=== PATIENT | female | born 1960 | race African-American/Black ===

== ENCOUNTER 2017-09-01 12:01 | Emergency (ER) | payer MEDICAID ==
[~2017-09-01] VITALS: Ht 162.6 cm; Wt 64.0 kg
[2017-09-01] MEDS ORDERED: MORPHINE SULFATE 10 MG/ML CPJ IV ONE (12:45)
[2017-09-01] MEDS ORDERED: SODIUM CHLORIDE 0.9% 1,000 ML IV ONE (12:45)
[2017-09-01] MEDS ORDERED: ONDANSETRON HCL 4MG/2ML VIAL IV ONE (12:45)
[2017-09-01 12:55] LABS: HEMATOCRIT. 47.4 % (36.0-48.0); HEMOGLOBIN. 16.3 g/dL (12.0-16.0); MEAN CORPUSCULAR HEMOGLOBIN 30.2 pg (28.0-32.0); MEAN CORPUSCULAR VOLUME 88.1 fL (81.0-99.0); MEAN PLATELET VOLUME 8.7 fl (7.4-10.4); PLATELET 318 x1000/uL (130-400); RED BLOOD CELL COUNT 5.38 mill/uL (4.2-5.4); RED CELL DISTRIBUTION WIDTH 13.8 % (11.6-14.6)
[2017-09-01 13:02] LABS: INR 1.2; PROTHROMBIN TIME 12.5 sec (9.4-11.6)
[2017-09-01 13:10] LABS: CHLORIDE 97 mEq/L (98-107)
[2017-09-01] MEDS ORDERED: LISINOPRIL 20MG TABLET PO ONE (13:15)
[2017-09-01] MEDS ORDERED: HYDROCHLOROTHIAZIDE 25MG TABLET PO ONE (13:15)
[2017-09-01] MEDS ORDERED: AMLODIPINE 10MG TABLET PO ONE (13:15)
[2017-09-01 13:35] LABS: PLATELET ESTIMATE NORMAL
[2017-09-01] MEDS ORDERED: LABETALOL 5MG/ML SYR 20 MG/4 ML SYRINGE IV ONE (15:00)
[2017-09-01 16:38] VITALS: BP 144/86
== END 2017-09-01 16:50 | disposition home or self-care (01) ==
LOC: ER 12:45
DX: K52.9 Noninfective gastroenteritis and colitis, unspecified (principal); I11.0 Hypertensive heart disease with heart failure; I50.9 Heart failure, unspecified; F17.200 Nicotine dependence, unspecified, uncomplicated
CPT/HCPCS: 36415; 76700; 80053; 83690; 85025; 85610; 96361; 96374; 96375; 99285; J2270; J2405; J3490; J7030